=== PATIENT | female | born 1980 | race Two or more races ===

== ENCOUNTER 2024-04-07 09:22 | Emergency (ER) | payer OTHER ==
[2024-04-07 09:45] VITALS: BP 116/72; PULSE 115; RESP 18; TEMP 99.4; BMI 26.6
[2024-04-07] MEDS ORDERED: IBUPROFEN 400 MG TABLET (FP) PO ONE (10:19)
[2024-04-07] MEDS ORDERED: ONDANSETRON *ODT* 4 MG TABLET ONE (10:29)
[2024-04-07] MEDS ORDERED: IBUPROFEN 600 MG TABLET (FP) PO ONE (10:29)
[2024-04-07] MEDS: IBUPROFEN 600 MG TABLET (FP) PO ONE (10:32)
[2024-04-07] MEDS: ONDANSETRON *ODT* 4 MG TABLET SL ONE (10:32)
== END 2024-04-07 11:36 | disposition home or self-care (01) ==
LOC: JERFT 09:22
DX: R05.9 Cough, unspecified (principal); U07.1 COVID-19; R50.9 Fever, unspecified; M79.10 Myalgia, unspecified site; R51.9 Headache, unspecified; J02.9 Acute pharyngitis, unspecified; R11.2 Nausea with vomiting, unspecified; R19.7 Diarrhea, unspecified; J06.9 Acute upper respiratory infection, unspecified; B97.89 Other viral agents as the cause of diseases classified elsewhere
CPT/HCPCS: 0241U-QW; 99283-25; Q0162